=== PATIENT | female | born 1990 | race Caucasian/White ===

== ENCOUNTER 2016-10-24 14:36 | Emergency (ER) | payer MEDICAID ==
[~2016-10-24] VITALS: Ht 154.9 cm; Wt 118.0 kg
[~2016-10-24 14:36] MED LIST: ACET325T38 PO; ASPI-38; AZIT250T81 PO; BUPR-42 PO; CEPH500C PO; DICL1ADH6; GABA100C PO; GABA300S PO; HLP5T PO; HYDR-2651 PO; HYDR-3702 PO; HYDR50TA77 PO; IBUP200C PO; LEVE500T26 PO; Lyrica; MIRT30TA6 PO; NEOM10DR9 RIGHT EAR; NF-DES50T PO; ONDN4T PO; PARO40TA3; PREG50C; Paxil; TRAM-25 PO; TRAZ100T92 PO
--- OUTSIDE RECORDS SUMMARY | 2016-10-24 14:40 | XMS REPORT ---
Author Author [place], [facility] - Organization Unknown Address Unknown Phone Unavailable Allergies, Adverse Reactions, Alerts Erythromycin Base causes Adverse Reaction.penicillin G causes Adverse Reaction.Bactrim causes Adverse Reaction and Adverse Reaction.Ceclor causes Adverse Reaction.Augmentin causes Adverse Reaction and Adverse Reaction.Rice (as Food allergen) causes Adverse Reaction.Tape (as Environmental allergen) causes Adverse Reaction.Latex Allergy has not been assessed.IV Contrast Allergy has not been assessed. Problems Agitated DepressionStatus:Inactive. AgitationStatus:Resolved. AgitationStatus: Resolved. AnxietyStatus:Inactive. Chronic AnxietyStatus:Active. Delusional DisorderStatus:Resolved. DepressionStatus:Resolved. DepressionStatus:Active. Difficulty SleepingStatus:Resolved. Feeling AngryStatus:Resolved. Feeling SuicidalStatus:Resolved. Feeling SuicidalStatus:Resolved. Financial ProblemStatus:Inactive. HallucinationsStatus:Inactive. Infection RiskStatus: Inactive. Injury of HeadStatus:Inactive. Injury of Lower ExtremityStatus: Resolved. Loss of AppetiteStatus:Resolved. ManiaStatus:Resolved. Mood DisorderStatus:Inactive. PainStatus:Inactive. Relationship ProblemsStatus: Resolved. Relationship ProblemsStatus:Inactive. Relationship ProblemsStatus: Active. Self-harmStatus:Resolved. Self-harmStatus:Active. Procedures No Procedures Documented. Medication Medication reconciliation has not been performed. Results LAB--CHEMISTRY from 02/07/2013 4:17 PMAnion Gap 8 (3-20 ) Albumin 4.2 g/dL (3.5-4.8 g/dL) Alkaline Phosphatase 53 U/L (26-104 U/L) ALT (SGPT) 14 U/L (14-54 U/L) AST (SGOT) 17 U/L (15-41 U/L) Bilirubin Total 0.5 mg/dL (0.2-1.2 mg/dL) BUN 13 mg/dL (4-20 mg/dL) Calcium 9.5 mg/dL (8.6-10.0 mg/dL) Chloride 103 mEq/L (99-109 mEq/L) CO2 25 mEq/L (22-32 mEq/L) Creatinine 0.70 mg/dL (0.44-1.03 mg/dL) eGFR >60 (>60- ) Globulin 3.0 g/dL (1.9-4.3 g/dL) Glucose 104 mg/dL H (70-100 mg/dL) Potassium 3.9 mEq/L (3.6-5.1 mEq/L) Sodium 136 mEq/L (136-144 mEq/L) Protein 7.2 g/dL (6.1-7.9 g/dL)LAB--HEMATOLOGY from 02/07/2013 4:17 PMAbsolute Basophils 0.03 THOUS (0.00-0.20 THOUS) Absolute Eosinophils 0.18 THOUS (0.00-0.50 THOUS) Absolute Lymphocytes 1.62 THOUS (0.80-3.30 THOUS) Absolute Monocytes 0.54 THOUS (0.30-1.00 THOUS) Absolute Neutrophils 7.02 THOUS H (1.90-7.00 THOUS) HCT 41.2 % (37.0-47.0 %) HGB 13.9 g/dl (12.0-16.0 g/dl) MCH 30.5 pg (27.0-32.0 pg) MCHC 33.7 g/dL (32.0-36.0 g/dL) MCV 90.4 fL (82.0-99.0 fL) MPV 10.3 fL (9.4-12.4 fL) Platelet Count 273 K/uL (150-400 K/uL) RBC 4.56 M/uL (4.00-5.20 M/uL) RDW 12.7 % (11.5-14.5 %) WBC 9.4 K/uL (4.8-10.8 K/uL) Basophils 0 % (0-2 %) Eosinophils 2 % (0-4 %) Immature Granulocytes 0.2 % (0.0-1.0 %) Lymphocytes 17 % L (20-46 %) Monocytes 6 % (4-11 %) Neutrophils 75 % (51-75 %)LAB--TOXICOLOGY & THERAPEUTIC DRUGS from 02/07/2013 4: 17 PMAcetaminophen (Tylenol) Level <10 mcg/mL (10-30 mcg/mL) Salicylate <4 mg/dL (0-30 mg/dL)
--- OUTSIDE RECORDS SUMMARY | 2016-10-24 14:42 | XMS REPORT ---
Author Author [place], [facility] - Organization Unknown Address Unknown Phone Unavailable [...]
[2016-10-24] MEDS ORDERED: ONDANSETRON 4 MG (ZOFRAN) ORAL DISSOLVE TAB PO ONE (16:25)
[2016-10-24] MEDS ORDERED: ONDA4TAB8 PO (16:47)
--- NOTE | 2016-10-24 16:52 | NUR ---
PT RETURNED TO FROM [facility] FOR [facility]. CL
[2016-10-24 17:50] VITALS: BP 135/88
[2016-12-01] MEDS ORDERED: HYDR-3702 PO (13:59)
[2016-12-10] MEDS ORDERED: LIDOVISC PO (10:59)
[2016-12-10] MEDS ORDERED: PARO30TA3 PO (10:59)
[2016-12-10] MEDS ORDERED: CLIN-79 PO (10:59)
[2016-12-10] MEDS ORDERED: FLX20C PO (10:59)
[2016-12-10] MEDS ORDERED: GBPN600T PO (10:59)
== END 2016-10-24 16:52 | disposition home or self-care (01) ==
LOC: ED 14:37
DX: K52.9 Noninfective gastroenteritis and colitis, unspecified (principal); R19.7 Diarrhea, unspecified; R11.11 Vomiting without nausea
CPT/HCPCS: 99282; A9270; 99283

== ENCOUNTER 2016-11-07 02:19 | Emergency (ER) | payer MEDICAID ==
[~2016-11-07] VITALS: Ht 154.9 cm; Wt 117.7 kg
[~2016-11-07 02:19] MED LIST changes: +ONDA4TAB8 PO
--- OUTSIDE RECORDS SUMMARY | 2016-11-07 02:24 | XMS REPORT ---
Author Author [place], [facility] - Organization Unknown Address Unknown Phone Unavailable [...]
--- OUTSIDE RECORDS SUMMARY | 2016-11-07 02:26 | XMS REPORT ---
Author Author [place], [facility] - Organization Unknown Address Unknown Phone [...]
[2016-11-07] MEDS ORDERED: ED- ACETAMINOHEN/CODEINE 300MG/30 MG (TYLENOL #3) 6 TABLETS/BTL PO ONE (02:40)
[2016-11-07] MEDS ORDERED: ACETAMINOPHEN/CODEINE 300MG/30 MG (TYLENOL #3) TABLET PO ONE (02:40)
[2016-11-07] MEDS ORDERED: ACET1TAB43 PO (03:00)
[2016-11-07 03:17] LABS: BASOPHILS % (AUTO) 0 % (0-2); EOSINOPHILS # (AUTO) 0.5 10^3uL; EOSINOPHILS % (AUTO) 4 % (0-4); LYMPHOCYTES # (AUTO) 3.1 X10^3; MEAN CORPUSCULAR HEMOGLOBIN 29.4 PG (26.0-34.0); MEAN CORPUSCULAR HGB CONC 33.4 g/dL (31.0-37.0); MEAN CORPUSCULAR VOLUME 88 FL (80-100); MEAN PLATELET VOLUME 9.7 FL (6.0-9.5); MONOCYTES # (AUTO) 1.1 X10^3; MONOCYTES % (AUTO) 9 % (3-11); NEUTROPHILS % (AUTO) 59 % (51-67); PLATELET COUNT 281 10^3uL (150-450); WHITE BLOOD COUNT 11.86 10^3uL (4.0-11.0)
[2016-11-07 03:21] LABS: ALKALINE PHOSPHATASE 84 U/L (38-126); ANION GAP 12.3 MEQ/L (3-15); BUN/CREATININE RATIO 18 (10-20); CREATINE KINASE 64 U/L (30-135); TOTAL PROTEIN 7.3 g/dL (6.4-8.5)
[2016-11-07 03:53] VITALS: BP 99/67
--- NOTE | 2016-11-07 06:47 | Diagnostic Imaging Report ---
INDICATION: Chest pain. Portable chest at 03:35 a.m. FINDINGS: Heart size and pulmonary vascularity are normal. Lungs are clear. There are no effusions or pneumothoraces. IMPRESSION: Negative chest. Dictated by: Dictated on workstation # [id number]
[2016-12-01] MEDS ORDERED: HYDR-3702 PO (13:59)
[2016-12-10] MEDS ORDERED: CLIN-79 PO (10:59)
[2016-12-10] MEDS ORDERED: LIDOVISC PO (10:59)
[2016-12-10] MEDS ORDERED: FLX20C PO (10:59)
[2016-12-10] MEDS ORDERED: GBPN600T PO (10:59)
[2016-12-10] MEDS ORDERED: PARO30TA3 PO (10:59)
== END 2016-11-07 03:54 | disposition home or self-care (01) ==
LOC: ED 02:21
DX: R07.89 Other chest pain (principal)
CPT/HCPCS: 36415; 71010; 80053; 82550; 82553; 84484; 85025; 85610; 85730; 93005; 99285; A9270; 93010; 99284

== ENCOUNTER 2016-12-01 12:32 | Emergency (ER) | payer MEDICAID ==
[~2016-12-01] VITALS: Ht 154.9 cm; Wt 114.0 kg
[2016-12-01 14:06] VITALS: BP 153/109
== END 2016-12-01 14:05 | disposition home or self-care (01) ==
LOC: ED 12:33
DX: K05.00 Acute gingivitis, plaque induced (principal); R60.0 Localized edema; F17.210 Nicotine dependence, cigarettes, uncomplicated
CPT/HCPCS: 99282; 99283

== ENCOUNTER 2016-12-10 10:15 | Emergency (ER) | payer MEDICAID ==
[~2016-12-10] VITALS: Ht 165.1 cm; Wt 127.7 kg
[2016-12-10] MEDS ORDERED: SODIUM CHLORIDE FLUSH 3 ML SYR IV ONE (10:20)
[2016-12-10] MEDS ORDERED: SODIUM CHLORIDE FLUSH 10 ML SYR IV PRN (10:20)
[2016-12-10 10:39] LABS: MEAN CORPUSCULAR HEMOGLOBIN 29.5 PG (26.0-34.0); MEAN CORPUSCULAR HGB CONC 32.9 g/dL (31.0-37.0); MEAN CORPUSCULAR VOLUME 90 FL (80-100); MEAN PLATELET VOLUME 9.4 FL (6.0-9.5); PLATELET COUNT 421 10^3uL (150-450); WHITE BLOOD COUNT 19.59 10^3uL (4.0-11.0)
[2016-12-10] MEDS ORDERED: NS IV SCH (10:45)
[2016-12-10] MEDS ORDERED: NALOXONE IV SCH (10:45)
[2016-12-10 10:51] LABS: ALBUMIN 3.8 g/dL (3.4-5.0); ALKALINE PHOSPHATASE 88 U/L (38-126); BUN/CREATININE RATIO 16 (10-20); CALCULATED IONIZED CALCIUM 3.8 mg/dL (3.8-4.6); CREATINE KINASE 81 U/L (30-135); TOTAL PROTEIN 7.2 g/dL (6.4-8.5)
[2016-12-10] MEDS ORDERED: ONDANSETRON 2 MG/ML (Z0FRAN) 2 ML VIAL ONE (10:52)
[2016-12-10 11:02] LABS: BAND NEUTROPHILS % 9 % (0-6); EOSINOPHILS % 2 % (0-4); LYMPHOCYTES # 5.7 #; MONOCYTES # 1.1 #; MONOCYTES % 6 % (3-11); RBC MORPH NORMAL (NORMAL); SEGMENTED NEUTROPHILS % 52 % (51-67); TOTAL CELLS COUNTED 100
[2016-12-10] MEDS ORDERED: LORazepam 2 MG/ML (ATIVAN) 1 ML VIAL ONE ×3 (11:09→11:24)
[2016-12-10 11:27] LABS: BILIRUBIN,URINE Negative (Negative); COLOR,URINE Yellow; GLUCOSE, URINE (UA) 1+ (Negative); LEUKOCYTE ESTERASE ,URINE Negative (Negative); UROBILINOGEN,URINE 0.2 mg/dL (0.2-1.0)
[2016-12-10 11:29] LABS: CLARITY,URINE Slightly Cloudy
[2016-12-10] MEDS ORDERED: SODIUM CHLORIDE 100 ML ONE (11:31)
[2016-12-10 11:35] LABS: AMPHETAMINE SCREEN, URINE Negative (Negative); CANNABINOID SCREEN, URINE Negative (Negative); METHAMPHETAMINE SCREEN URINE S NEGATIVE (NEGATIVE)
[2016-12-10 11:36] LABS: OPIATE SCREEN URINE Positive (Negative); PROPOXYPHENE STAT NEGATIVE (NEGATIVE); RBC,URINE 50-100 /HPF; URINE CENTRIFUGED VOLUME 12 mL
--- NOTE | 2016-12-10 11:40 | NUR ---
[facility] ETA 1152, [facility] CAPTAIN NOTIFIED.
[2016-12-10 11:52] LABS: ABG PCO2 79 mmHg (35-45); ABG PH 7.06 (7.35-7.45); ABG PO2 80 mmHg (80-105)
[2016-12-10 11:53] LABS: ABG OXYGEN SATURATION 88 % (95-98)
[2016-12-10 11:57] LABS: ABG OXYGEN SATURATION 100 % (95-98); ABG PCO2 39 mmHg (35-45); ABG PH 7.36 (7.35-7.45); ABG PO2 283 mmHg (80-105)
[2016-12-10 12:16] VITALS: BP 137/88
--- NOTE | 2016-12-10 12:20 | NUR ---
AT 1023 PT BROUGHT TO ER BY EMS WAS FOUND UNRESPONSIVE AND EMS INITALLY CALLED CODE BLUE PT HAS APPROX 15 MIN CPR THEN FAVIOLA IN PLACE BY EMS AND THEY INTUBATED BY EMS WITH #6 ET TUBE AT 23 CM AT LIP, AMBU BAG BY EMS STAFF THEN RT ARRIVED. THEY (EMS) DOWN GRADED PT TO A CODE RED. FAVIOLA OFF PT HAS PULSE. JUST NEEDING RESCUE BREATHING. EMS REPORT NO SHOCKS WERE GIVEN, THEY DID GIVE HER EPI XE IN FIELD. PT IS UNRESONSIVE TO VERBAL OR PAINFUL STIMULI AT THIS TIME. PER EMS PT HAS SMOKED A FENTANYL PATCH. MULTIPLE STAFF TO INCLUDE DR WATKINS IN ROOM. PT DOES HAVE IO IN LEFT TIBULIA IS SECURED HAS NS RUNNING OPEN WITH PRESSURE BAG 1023 ACCU CHECK 93 DATA LEAD SHOWS SINUS TACH 1025 ABG OBTAINED BY RT MARINA 1027 VS 135 P, RESP 9 WITH AMBU BAG, SAT 94% UNABLE TO GET B/P AT THIS TIME 1029 NARCAN 2 MCG GIVEN PER PHARMACY IN IO 1030 3 ATTEMPTS PERHIPHERAL IV INITATED IN L WRIST 20 GAUGE, BLOOD DRAWN AT THIS TIME AND BLOOD SENT TO LAB 1035 NS STARTED 999ML/HR IN L WRIST 1036 NARCAN 2 MG IVP L WRIST BY FROYLAN RN 1037 FAVIOLA REMOVE AND CHEST X RAY DONE 1038 PT PARTIALLY WAKES UP OPENS EYES AND DOES PULL FEET BACK FROM PAIN 1039 PUPILS AT 3 MM AMANDA ETCO2 =82 WAVE AC 30 PT IS TAKING SOME BREATHS ON OWN THEY ARE SHALLOW RT CONTINUES WITH ASSIST WITH RESP. 1045 16 FR WEBBER CATH INSERTED WITH IMMEDIATE RETURN OF CLOUDY YELLOW URINE UA SENT TO LAB 1047 IV FLUIDS DECREASED TO TKO PER DR WATKINS
--- NOTE | 2016-12-10 12:25 | NUR ---
CONTINUE: 1047 IVS CHANGED TO KVO B/P 169/129 RA , 173/121 LA P 136 R 27 TEMP 97.5 SATS 1000 AMBU BAG 1050 TOTAL URINE OUT 400CC 1053 ZOFRAN 4 MG IVP L WRIST BY Clyde LOPEZ PHARMACIST 1054 B/P 170/119 1057 NARCAN DRIP STARTED BY PHARMACY AT 70 ML/HR IN LEFT WRIST LAB CALLED D DIMER 9717 1109 PT HAVING SEIZURE ATIVAN 2 MG IO BY Clyde LOPEZ PHARMACIST 1115 NARCAN STOPPED 1116 ATIVAN 2 MG IO 1122 THRU 1126 SEIZURE ACTIVITY CONTINUES IS MAINLY PT COUGHS AND SEIZES HER CHIN QUIVERS 1124 EKG DONE PT IN SINUS TACH 1135 KEPPRA 1 GM LOADING DOES GIVEN IV LEFT WRIST BY Clyde LOPEZ PHARMACIST 1140 16 FR NG TUBE INSERTED BY Be AGUILA RN R NARE GOOD STOMACH CONTENTS RETURN, PLACEMENT CHECKED BY AUSCULATION. SECURED AT 50 CM R NARE [id number] OFF AND ON SEIZURE ACT CONTINUES 1153 REPORT TO RN AT [facility]. OTTONIEL IS HERE TO TRANSFER PT ALONG WITH [facility] TO ASSIST
[2016-12-10] MEDS ORDERED: ONDANSETRON 2 MG/ML (Z0FRAN) 2 ML VIAL IV ONE (15:25)
[2016-12-10] MEDS ORDERED: LORazepam 2 MG/ML (ATIVAN) 1 ML VIAL IV ONE ×2 (15:25)
[2016-12-10] MEDS ORDERED: LEVETIRACETAM IV 1,000 MG in SODIUM CHLORIDE 100 ML IV ONE (15:30)
[2016-12-10] MEDS ORDERED: NALOXONE 0.4 MG/ML (NARCAN) 1 ML VIAL IV ONE ×2 (15:30)
== END 2016-12-10 12:20 | disposition short-term general hospital (02) ==
LOC: EDUNIT# 10:15 → ED 10:16
DX: T40.4X4A Poisoning by other synthetic narcotics, undetermined, initial encounter (principal); T42.4X4A Poisoning by benzodiazepines, undetermined, initial encounter; R09.2 Respiratory arrest; Y92.008 Other place in unspecified non-institutional (private) residence as the place of occurrence of the external cause
CPT/HCPCS: 36415; 36680; 51702; 71010; 80053; 81003; 81015; 82550; 82553; 82803; 83605; 84443; 84484; 85025; 85379; 85610; 87088; 92950; 93005; 96365; 96367; 96375; 99285; G0478; G0480; J1953; J2060; J2310; J2405; J7030; J7040; J7050; 36600; 80307; 80320; 80329; 93010

== ENCOUNTER → 2016-12-10 | Outpatient (CLI) | payer MEDICAID | LOC: EMS 10:10 | PROVIDERS: ATTEND Family Medicine | DX: R06.81 Apnea, not elsewhere classified (principal); I46.9 Cardiac arrest, cause unspecified ==